=== PATIENT | female | born 1950 | race Caucasian/White ===

== ENCOUNTER → 2016-08-23 | Outpatient (CLI) | payer OTHER | LOC: KOH-I 08:13 | DX: R31.29 Other microscopic hematuria (principal); K80.20 Calculus of gallbladder without cholecystitis without obstruction | CPT/HCPCS: 74178; Q9962 ==

== ENCOUNTER 2020-07-21 17:18 | Emergency (ER) | payer OTHER ==
[2020-07-21 19:46] LABS: HEMOGLOBIN 13.9 gm/dl (12.3-15.3); RED BLOOD COUNT 4.47 M/UL (4.00-5.10); WHITE BLOOD COUNT 5.4 K/UL (4.5-11.0)
[2020-07-21 20:13] LABS: BUN/CREATININE RATIO 22 (0-10)
== END 2020-07-21 22:35 | disposition home or self-care (01) ==
LOC: ER1 17:18
PROVIDERS: Preventive Medicine Occupational Medicine
DX: R06.02 Shortness of breath (principal); R11.0 Nausea; R07.89 Other chest pain; T50.B95A Adverse effect of other viral vaccines, initial encounter; Z88.5 Allergy status to narcotic agent; Z90.710 Acquired absence of both cervix and uterus
CPT/HCPCS: 0240U; 36415; 71045; 80053; 82550; 82553; 83690; 83874; 84484; 85025; 85652; 86140; 93005; 99285; J7030

== ENCOUNTER → 2021-09-10 | Outpatient (CLI) | payer OTHER ==
[~2021-09-10] MED LIST: ENDOCET 5-3251 EACH PO; ZOFRAN ODT 4 MG4 MG SL
== END ==
LOC: NM 12:38
DX: R10.11 Right upper quadrant pain (principal)
CPT/HCPCS: 78227; A9537